=== PATIENT | male | born 1990 | race Caucasian/White ===

== ENCOUNTER 2021-03-02 04:17 | Emergency (ER) | payer OTHER ==
[2021-03-02] MEDS ORDERED: DIPHTH,PERTUSS(ACELL),TET 0.5 ML DISP.SYRIN IM ONE ×3 (04:35→06:02)
[2021-03-02 04:36] VITALS: BMI 32.3
[2021-03-02 05:44] VITALS: BP 125/84; PULSE 98; TEMP 97.7
== END 2021-03-02 06:51 | disposition left against medical advice (07) ==
LOC: JER 04:17
PROC: 3E0234Z Introduction of Serum, Toxoid and Vaccine into Muscle, Percutaneous Approach (ICD-10-PCS; principal; 2021-03-02)
DX: S02.40CA Maxillary fracture, right side, initial encounter for closed fracture (principal); S01.511A Laceration without foreign body of lip, initial encounter; Y04.8XXA Assault by other bodily force, initial encounter
CPT/HCPCS: 70450-TC; 70486-TC; 72125-TC; 90471; 90715; 99284-25

== ENCOUNTER 2021-07-24 06:58 | Inpatient (IN) | payer OTHER ==
[2021-07-24 07:19] VITALS: TEMP 98.2; BMI 33.0
[2021-07-24] MEDS ORDERED: ACETAMINOPHEN 500 MG TABLET (FP) PO ONE (07:53)
[2021-07-24] MEDS ORDERED: ACETAMINOPHEN 1000 MG/100 ML BAG IVPB ONE (08:04)
[2021-07-24] MEDS ORDERED: FAMOTIDINE 20 MG/50 ML IVPB 20 MG/50 ML MG IVPB ONE (08:04)
[2021-07-24 08:12] LABS: CHLORIDE 101 mmol/L (98-107); SODIUM 134 mmol/L (136-145)
[2021-07-24] MEDS ORDERED: ACETAMINOPHEN 325 MG TABLET (FP) ONE (08:13)
[2021-07-24] MEDS ORDERED: FAMOTIDINE 10 MG/ML VIAL IVPB ONE (08:15)
[2021-07-24] MEDS ORDERED: ACETAMINOPHEN INJECTION 100 ML IVPB ONE (08:15)
[2021-07-24 08:16] LABS: ANION GAP 4 MMOL/L (8-16); CO2 29 mmol/L (21-32); GLUCOSE,RANDOM 204 mg/dL (74-106); LIPASE 88 U/L (73-393); MAGNESIUM 1.9 mg/dL (1.8-2.4)
[2021-07-24 08:18] LABS: CREATININE 1.3 mg/dL (0.55-1.3)
[2021-07-24 08:28] LABS: ALBUMIN 2.8 g/dl (3.4-5.0); ALK PHOS 82 U/L (45-117); BILIRUBIN,TOTAL 1.4 mg/dL (0.2-1); BLOOD UREA NITROGEN 12.6 mg/dL (7-18); TOT PROT 7.3 g/dl (6.4-8.2)
[2021-07-24] MEDS ORDERED: LIDOCAINE 5% TOPICAL PATCH TP ONE (09:14)
[2021-07-24 10:06] LABS: BASO % 0.8 % (0-2.0); EOS % 1.4 % (0-4.5); HEMATOCRIT 42.4 % (35.4-49); HEMOGLOBIN 14.2 GM/dL (11.7-16.9); LYMPH % 22.2 % (8-40); MCH 26.6 pg (25.7-33.7); MCHC 33.5 g/dl (32.0-35.9); MEAN CELL VOLUME 79.3 fl (80-96); MEAN PLT VOLUME 8.4 fl (7.5-11.1); MONO % 7.7 % (3.8-10.2); NEUT % 67.9 % (42.8-82.8); PLATELET COUNT 179 10^3/uL (134-434); RBC 5.36 M/mm3 (4.00-5.60); RDW 14.5 % (11.9-15.9); WHITE BLOOD COUNT 7.1 K/mm3 (4.0-10.0)
[2021-07-24] MEDS ORDERED: LIDOCAINE 5% TOPICAL PATCH ONE (10:15)
[2021-07-24] MEDS ORDERED: ACETAMINOPHEN 325 MG TABLET (FP) PO PRN (10:28)
[2021-07-24 10:43] LABS: CHLORIDE 103 mmol/L (98-107); SODIUM 132 mmol/L (136-145)
[2021-07-24 10:49] LABS: CO2 22 mmol/L (21-32)
[2021-07-24 10:50] LABS: ALBUMIN 2.8 g/dl (3.4-5.0); GLUCOSE,RANDOM 171 mg/dL (74-106)
[2021-07-24 10:53] LABS: CHOLESTEROL 210 mg/dL (50-200)
[2021-07-24 10:54] LABS: LDL CHOLESTEROL (ONLY SJRH) 69 mg/dL (5-100)
[2021-07-24 10:55] LABS: HDL CHOLESTEROL 14 mg/dL (40-60)
[2021-07-24 11:39] LABS: ALK PHOS 74 U/L (45-117); ANION GAP 7 MMOL/L (8-16); BILIRUBIN,TOTAL 1.2 mg/dL (0.2-1); BLOOD UREA NITROGEN 13.6 mg/dL (7-18); CALCIUM 6.2 mg/dL (8.5-10.1); TOT PROT 7.3 g/dl (6.4-8.2); TRIGLYCERIDES 2766 mg/dL (0-150)
[2021-07-24] MEDS ORDERED: SODIUM CHLORIDE 1,000 ML IV STA ×2 (12:47→12:59)
[2021-07-24] MEDS ORDERED: EZETIMIBE 10 MG TABLET (FP) PO SCH (13:00)
[2021-07-24 13:38] VITALS: BP 134/86; PULSE 78
[2021-07-24 14:18] LABS: INR 1.09 (0.83-1.09); PROTHROMBIN TIME (PATIENT) 12.6 SEC (9.7-13.0)
[2021-07-24 14:21] LABS: ACTIVATED PTT 30.4 SECONDS (25.2-36.5)
[2021-07-24 14:42] LABS: BLOOD UREA NITROGEN 12.8 mg/dL (7-18)
[2021-07-24 14:45] LABS: CREATININE 0.9 mg/dL (0.55-1.3)
[2021-07-24 14:46] LABS: BILIRUBIN,TOTAL 0.7 mg/dL (0.2-1)
[2021-07-24 14:56] LABS: ALBUMIN 3.4 g/dl (3.4-5.0); TOT PROT 6.6 g/dl (6.4-8.2)
[2021-07-24] MEDS ORDERED: LIDOCAINE PATCH REMOVAL MC ONE (22:00)
[2021-07-24] MEDS ORDERED: HEPARIN NA (PORCINE) 5,000 UNITS/ML 1ML VIAL SQ SCH (22:00)
[2021-07-24] MEDS ORDERED: ATORVASTATIN CA 40 MG TABLET (FP) PO SCH (22:00)
[2021-07-25] MEDS ORDERED: GEMFIBROZIL 600 MG TABLET (FP) PO ONE (07:00)
[2021-07-25] MEDS ORDERED: ASPIRIN COATED 81 MG TABLET.EC PO SCH (10:00)
== END 2021-07-24 17:22 | disposition home or self-care (01) | DRG 203 ==
LOC: JER 06:58 → JERBED 10:17 → OBSVTOIN 10:26
PROVIDERS: ADMIT Family Medicine
DX: R07.89 Other chest pain (principal); E03.9 Hypothyroidism, unspecified; E78.1 Pure hyperglyceridemia; E78.5 Hyperlipidemia, unspecified; E83.51 Hypocalcemia; F90.9 Attention-deficit hyperactivity disorder, unspecified type; Q75.0 Craniosynostosis; E66.9 Obesity, unspecified; Z68.33 Body mass index [BMI] 33.0-33.9, adult; E23.0 Hypopituitarism; F17.290 Nicotine dependence, other tobacco product, uncomplicated; R42 Dizziness and giddiness
CPT/HCPCS: 36415; 71045-TC-FY; 76705-TC; 80053; 80061; 80307; 82150; 82330; 82977; 83036; 83690; 83735; 84443; 84484; 85025; 85610; 85730; 93005; 93010; 93306-TC; 99285-25; C9803-CS; G0378; U0003; U0005